=== PATIENT | female | born 1955 | race Caucasian/White ===

== ENCOUNTER 2018-09-03 11:03 | Observation (INO) ==
--- NOTE | 2018-09-03 11:48 | Emergency Department Note ---
Disposition Clinical Impression: TIA (transient ischemic attack) Disposition: Admitted As Inpatient Condition: Fair Referrals: NONE,PCP [Primary Care Provider] - Forms: ED Satisfaction Letter Time of Disposition: 13:59 General Adult HPI - General Chief complaint: ED Arrhythmia/Palpitations Stated complaint: Numbness right arm, Hypertension, Time Seen by Provider: 09/03/18 11:19 Source: patient Limitations: no limitations Nursing Notes Reviewed: Yes Vital Signs Reviewed: Yes - History of Present Illness HPI Narrative: Presents with right arm numbness which was present at home this morning when she woke up at 6:00 and went back to sleep and woke up again at 10:00 and at that time felt disoriented and she did not know where she was and because her had a stroke she was concerned maybe she was having a stroke so recited the alphabet but was able to do this successfully. She does not feel confused at this time anymore. She did have some numbness of both shoulders and mid back which is resolved now. No chest pain. No head pain. No weakness of extremities. No slurred speech, facial droop, confusion at this time. Social history: No smoking or alcohol. She is diabetic. She is here with her daughter Pain Scale: 6 - Related Data Home Medications Medication Instructions Recorded Confirmed Albuterol Sulfate [Ventolin Hfa] 2 puff IH Q4HR PRN 09/03/18 09/03/18 Aspirin [Adult Aspirin] 81 mg PO DAILY 09/03/18 09/03/18 Fluticasone Propionate [Flovent 2 puff IH DAILY 09/03/18 09/03/18 Hfa] Insulin Glargine,Hum.rec.anlog 18 unit SQ DAILY 09/03/18 09/03/18 [Basaglar Leobardopen U-100] Linagliptin [Tradjenta] 5 mg PO DAILY 09/03/18 09/03/18 Lisinopril [Zestril] 5 mg PO DAILY 09/03/18 09/03/18 Lovastatin [Mevacor] 20 mg PO DAILY 09/03/18 09/03/18 Metoprolol Tartrate 50 mg PO BID 09/03/18 09/03/18 Montelukast [Singulair] 10 mg PO DAILY 09/03/18 09/03/18 Pioglitazone [Actos] 15 mg PO DAILY 09/03/18 09/03/18 Previous Rx's Medication Instructions Recorded hydroCHLOROthiazide 25 mg PO DAILY #30 tablet 11/27/16 [Hydrochlorothiazide] Allergies Allergy/AdvReac Type Severity Reaction Status Date / Time No Known Allergies Allergy Verified 11/27/16 09:58 Review of Systems: Constitutional: No fever Vision: No blurred vision ENT: No rhinorrhea Respiratory: No cough Allergic: No allergies : No blood in urine GI: No blood in stool Hematologic: No bruising Dermatologic: No skin rash Musculoskeletal: No pain in the extremities Neuro: + numbness of the extremities right arm Past Medical History - Past Medical History Medical history: Reports: diabetes, fibromyalgia, hypertension Surgical history: Reports: appendectomy, cholecystectomy, hysterectomy Psychiatric history: Reports: no psych history - Social History Smoking Status: Never smoker Smokeless Tobacco Status: No Alcohol use: Reports: none Drug use: Reports: none Physical Exam CONSTITUTIONAL: Alert and oriented X3, well-nourished, well appearing, in no apparent distress HEAD: Normocephalic; atraumatic. EYES: PERRL, no scleral icterus. NOSE: The nose is normal in appearance without rhinorrhea RESP: Normal chest excursion with respiration; breath sounds clear and equal bi laterally; no wheezes, rhonchi, or rales CARD: Regular rhythm, without murmurs, rub or gallop ABD: Non-distended; non-tender, soft,without rigidity, rebound or guarding SKIN: Normal for age and race; warm and dry; no apparent lesions Neuro: Stroke scale is 0. She is conversing normally. Alert and oriented 3 and does easily and readily know the month and her age - General Limitations: no limitations General appearance: alert Course Vital Signs Temperature 97.9 F 09/03/18 11:10 Pulse Rate 82 09/03/18 11:10 Respiratory Rate 09/03/18 11:10 Blood Pressure 169/84 09/03/18 11:10 O2 Sat by Pulse Oximetry 100 09/03/18 11:10 Temperature 97.9 F 09/03/18 11:10 Pulse Rate 78 09/03/18 13:22 Respiratory Rate 20 09/03/18 11:10 Blood Pressure 160/85 09/03/18 13:22 O2 Sat by Pulse Oximetry 100 09/03/18 13:22 Oxygen Delivery Oxygen Delivery Room Air Medical Decision Making - MDM Narrative Medical decision making narrative: Symptoms concerning for TIA. Symptoms resolved this time. I did review the patient's EKG showing normal sinus rhythm with rate of 80 and without acute ischemic change or evidence of arrhythmia. She will be admitted to the hospital after testing is done here including head CT and labs. Results pending. 1148 I did speak with Dr. Castaneda who accepts the patient for admission for further evaluation of TIA. The patient is not a thrombolytic candidate due to prolonged duration of symptoms with last known normal being last night 1359 - Medical Records Medical records reviewed: Yes I reviewed the patient's medical records. - Lab Data Lab results reviewed: Yes I reviewed the patient's lab results. Result diagrams: 09/03/18 11:21 09/03/18 11:21 Lab Results 09/03/18 09/03/18 Range/Units 11:21 11:21 WBC 10.2 (4.3-11.1) K/mcL RBC 4.83 (3.82-4.97) M/mcL Hgb 13.0 (11.5-15.4) g/dL Hct 40.0 (35.3-44.9) % MCV 82.8 L (83.0-100.0) fL MCH 26.9 L (28.0-33.3) pg MCHC 32.5 (31.6-35.5) g/dL RDW 14.5 (11.5-14.5) % Plt Count 240 (140-400) K/mcL MPV 9.0 L (9.4-12.4) fL Sodium 135 L (136-145) mEq/L Potassium 4.2 (3.5-5.1) mEq/L Chloride 100 (98-107) mEq/L Carbon Dioxide 27 (23-29) mEq/L BUN 21 (8-23) mg/dL Creatinine 0.78 (0.60-1.20) mg/dL Est GFR ( Amer) > 60 (> 60) Est GFR (Non-Af Amer) > 60 (> 60) BUN/Creatinine Ratio 27 H (6-26) Glucose 203 H (70-105) mg/dL Calculated Osmolality 289 (280-300) Calcium 9.7 (8.6-10.3) mg/dL Troponin I < 0.03 (< 0.04) ng/mL - Radiology Data Radiology results reviewed: Yes I reviewed the patient's radiology results. NIH Stroke Scale - Level of Consciousness LOC: Alert - LOC Questions LOC Questions: Answers both correctly - LOC Commands LOC Commands: Performs both correctly - Best Gaze Best Gaze: Normal - Visual Visual: No visual loss - Facial Palsy Facial Palsy: Normal - Motor Arms Motor Arm-Left: No drift for 10 seconds Motor Arm-Right: No drift for 10 seconds - Motor Legs Motor Leg-Left: No drift for 5 seconds Motor Leg-Right: No drift for 5 seconds - Limb Ataxia Limb Ataxia: Normal, No Ataxia - Sensory Sensory: Normal - Best Language Best Language: No aphasia - Dysarthria Dysarthria: Normal - Extinction and Inattention Extinction and Inattention: Normal - NIHSS Total Score NIHSS Total Score: 0
[2018-09-03 12:05] LABS: Mean Corpuscular HGB Conc 32.5 g/dL (31.6-35.5); Mean Corpuscular Hemoglobin 26.9 pg (28.0-33.3); Mean Corpuscular Volume 82.8 fL (83.0-100.0); Platelet Count 240 K/mcL (140-400); Red Blood Count 4.83 M/mcL (3.82-4.97); Red Cell Distribution Width 14.5 % (11.5-14.5); White Blood Count 10.2 K/mcL (4.3-11.1)
[2018-09-03 12:21] LABS: BUN/Creatinine Ratio 27 (6-26); Blood Urea Nitrogen 21 mg/dL (8-23); Calcium 9.7 mg/dL (8.6-10.3); Carbon Dioxide 27 mEq/L (23-29); Chloride 100 mEq/L (98-107); Glucose 203 mg/dL (70-105); Osmolality,Calculated 289 (280-300); Potassium 4.2 mEq/L (3.5-5.1); Sodium 135 mEq/L (136-145); Troponin I < 0.03 ng/mL (< 0.04); eGFR For African Americans > 60 (> 60); eGFR For Non-African Americans > 60 (> 60)
[2018-09-03] MEDS ORDERED: Naloxone 0.4 MG/ML INJ IVP PRN (14:37)
[2018-09-03] MEDS ORDERED: traMADol 50 MG TABLET PO PRN (14:37)
[2018-09-03] MEDS ORDERED: Dextrose Gel 15 GM/37.5 ML TUBE PO PRN ×2 (14:40)
[2018-09-03] MEDS ORDERED: D5% in Water 1,000 ML IVC PRN (14:40)
[2018-09-03] MEDS ORDERED: *HR* Dextrose 50 % in Water (Syg) 50 ML SYRINGE IVP PRN (14:40)
--- NOTE | 2018-09-03 15:07 | Internal Med History&Physical ---
Date of Encounter: 09/03/18 Time of Encounter: 15:02 Internal Medicine - H&P: HPI Chief complaint: right sided weakness and numbness Admitted From: Home Plans for Post Hospital Care: Home History of present illness: Ms. Crabtree is a 63 year old female PMH of DM, HTN, and HLD. Patient presented to the hospital due to right sided numbness and weakness. Patient reports today at around 6am she woke up and she felt disoriented and her right arm was feeling numb and heavier. reported she checked her blood sugar and it was around 160, and her BP was not elevated. Reports going back to sleep and waking up around 10am and again he right arm was numb, and weaker and decided to come to the ED. denies slurred speech, reports nausea and one episode of non- bilious, non-bloody vomiting as well as temporal headache. Denies urinary symptoms, fever, or abdominal pain, but reports chills. patient reports going through a lot of stress at work. Past Med Surg Social Fam HX - Past Medical History Medical history: diabetes, fibromyalgia, hypertension Psychiatric history: no psych history - Past Surgical History Surgical History: appendectomy, cholecystectomy, hysterectomy - Social History Smoking Status: Never smoker Smokeless Tobacco Status: No Alcohol use: none Drug use: none Internal Medicine - H&P: Meds hydroCHLOROthiazide [Hydrochlorothiazide] 25 mg PO DAILY #30 tablet 11/27/16 [Rx] Albuterol Sulfate [Ventolin Hfa] 2 puff IH Q4HR PRN 09/03/18 [History] Aspirin [Adult Aspirin] 81 mg PO DAILY 09/03/18 [History] Fluticasone Propionate [Flovent Hfa] 2 puff IH DAILY 09/03/18 [History] Insulin Glargine,Hum.rec.anlog [Basaglar Kwikpen U-100] 18 unit SQ DAILY 09/03/18 [History] Linagliptin [Tradjenta] 5 mg PO DAILY 09/03/18 [History] Lisinopril [Zestril] 5 mg PO DAILY 09/03/18 [History] Lovastatin [Mevacor] 20 mg PO DAILY 09/03/18 [History] Metoprolol Tartrate 50 mg PO BID 09/03/18 [History] Montelukast [Singulair] 10 mg PO DAILY 09/03/18 [History] Pioglitazone [Actos] 15 mg PO DAILY 09/03/18 [History] Allergy/AdvReac Type Severity Reaction Status Date / Time No Known Allergies Allergy Verified 11/27/16 09:58 All Systems PM: A 10-system review of systems was performed and is negative for pertinent findings except as documented above in the HPI. - Constitutional Constitutional: chills, weakness, no fever(s), no malaise - EENT Nose, mouth and throat: no sinus pain - Cardiovascular Cardiovascular ROS IM: no chest pain, no dyspnea, no dyspnea on exertion, no lightheadedness, no palpitations, no paroxysmal nocturnal dyspnea - Respiratory Respiratory: no cough, no wheezing, no excessive phlegm production - Gastrointestinal Gastrointestinal: nausea, vomiting, no abdominal pain, no diarrhea, no dyspepsia - Musculoskeletal Musculoskeletal ROS IM: no atrophy - Integumentary Integumentary IM: no erythema, no non-healing lesions - Neurological Neurological ROS: confusion, focal weakness, headache(s), numbness, weakness, no lack of coordination - Psychiatric Psychiatric: no anxiety, no hallucinations, no hopelessness - Endocrine Endocrine IM: no cold intolerance, no excessive sweating - Hematologic/Lymphatic Hematologic/Lymphatic: no lymphadenopathy - Allergic/Immunologic Allergic/Immunologic: no GI upset with certain foods - Constitutional Vitals: Temp Pulse Resp BP Pulse Ox 97.9 F 78 20 156/79 100 09/03/18 11:10 09/03/18 13:22 09/03/18 14:48 09/03/18 14:48 09/03/18 13:22 Exam: General: Patient is Alert and oriented x4. No acute distress, speaks in full sentences Head: atraumatic, normocephalic, Eye: normal appearance, PERRL, no scleral icterus, no conjunctival injection ENT: mucous membranes moist, normal external ear exam Respiratory: Good respiratory effort. CTA b/l, no wheezing, rales or crackles. Cardiovascular: RRR,normal s1 and s2, no clicks, rubs, gallops, or murmors. Abdomen: Bowel sounds present normoactive x-4 quadrants. Abdomen is soft, nondistended. No guarding or rebound. Obese musculoskeletal: Spontaneously moving all extremities. no edema, no calf te nderness Skin: warm, dry, intact. Neuro: Sensation light touch intact. Cranial nerves 2-12 is intact. Not aphasic, rapid hand movements intact, [id number] intact, Psych: Patient's affect is normal Internal Med - H&P Results - Labs CBC & Chem 7: 09/03/18 11:21 09/03/18 11:21 Labs: Short CBC 09/03/18 Range/Units 11:21 WBC 10.2 (4.3-11.1) K/mcL Hgb 13.0 (11.5-15.4) g/dL Hct 40.0 (35.3-44.9) % Plt Count 240 (140-400) K/mcL BMP 09/03/18 11:21 Sodium 135 L Potassium 4.2 Chloride 100 Carbon Dioxide 27 BUN 21 Creatinine 0.78 Glucose 203 H Calcium 9.7 Cardiac Enzymes 09/03/18 Range/Units 11:21 Troponin I < 0.03 (< 0.04) ng/mL - Impressions ITS Impressions Chest X-Ray 09/03/18 11:43 IMPRESSION: No acute cardiopulmonary abnormality. D/ / Mark Brody MD / Mark Brody MD Interpreting Provider: Mark Brody MD Head CT 09/03/18 11:43 IMPRESSION: No acute intracranial abnormality. D/ / Enid Maradiaga MD / Enid Maradiaga MD Interpreting Provider: Enid Maradiaga MD - Diagnostic Studies Chest x-ray Status: image reviewed by me (no acute findings) - Assessment and Plan (1) Stroke-like symptoms Current Visit: Yes Status: Acute Assessment and plan: possible TIA, patient's symptoms have resolved. will r/o acute cva patient with multiple risks factors Plan MRI of the brain TTE Aspirin 81mg/PO daily Lipid panel A1C PT/OT (2) Diabetes Current Visit: Yes Status: Chronic Assessment and plan: Hyperglycemia. Patient started on short and long-acting insulin coverage. Carbs controlled diet Qualifiers: Diabetes mellitus type: type 2 Diabetes mellitus emt intermediate insulin use: unspecified emt intermediate insulin use status Diabetes mellitus complication status: without complication Qualified Code(s): E11.9 - Type 2 diabetes mellitus without complications (3) HTN (hypertension) Current Visit: Yes Status: Chronic Assessment and plan: Resume patient's home medication. Lisinopril 5 mg by mouth daily, and metoprolol 50 mg by mouth twice a day. Qualifiers: Hypertension type: unspecified Qualified Code(s): I10 - Essential (primary) hypertension (4) HLD (hyperlipidemia) Current Visit: Yes Status: Chronic Assessment and plan: Patient is on lovastatin 20 mg by mouth at bedtime. Qualifiers: Hyperlipidemia type: unspecified Qualified Code(s): E78.5 - Hyperlipidemia, unspecified (5) DVT prophylaxis Current Visit: Yes Status: Acute Assessment and plan: Heparin subcutaneous. - Time Spent With Patient Total time spent is greater than 50% in coordination of care (as documented) at patient's floor/unit and/or counseling patient: Greater than 35 minutes (40)
[2018-09-03 16:19] LABS: Prothrombin Time 11.6 Seconds (9.4-12.1)
[2018-09-03 16:22] LABS: Activated Partial Thrombo Time 29.1 Seconds (26.0-36.0)
[2018-09-03 16:47] LABS: Estimated Average Glucose 180 mg/dl
[2018-09-03] MEDS: Aspirin Enteric Coated 81 MG Tablet PO SCH (17:19)
[2018-09-03] MEDS: Insulin LISPRO 300 UNITS/3 ML VIAL SQ SCH (17:19)
[2018-09-03] MEDS: Ondansetron 4 MG/2 ML VIAL IVP PRN (17:28)
[2018-09-03] MEDS ORDERED: Insulin DETEMIR 100 UNIT/ML X5UNITS SQ SCH (21:00)
[2018-09-03] MEDS: *HR* Heparin 5,000 UNIT/ML VIAL SQ SCH (21:31)
--- NOTE | 2018-09-03 23:14 | Event Note ---
Date of Encounter: 09/03/18 Time of Encounter: 23:09 Notified by nurse of patient's MRI brain results showing acute microinfarcts within the high left frontoparietal lobe. Assessed patient at bedside, symptoms remain resolved at this time. Called on-call neurology Dr. Veronica to consult on patient and for any new recommendations. Requested patient be started on 75 mg Plavix daily now and will see in a.m.
[2018-09-04 00:34] LABS: Bilirubin,Urine Negative (Negative); Blood,Urine Negative (Negative); Clarity,Urine Clear (Clear); Glucose,Urine (UA) Normal (Normal); Ketones,Urine Negative (Negative); Leukocyte Esterase,Urine Negative (Negative); Nitrite,Urine Negative (Negative); Protein,Urine Negative (Neg-Trace); Specific Gravity,Urine 1.019 (1.010-1.025); Urobilinogen,Urine Normal (Normal)
[2018-09-04 00:35] LABS: Color,Urine Yellow (Yellow)
[2018-09-04 01:50] LABS: Basophils # 0.1 K/mcL (0.0-0.2); Basophils % 0.6 %; Eosinophils # 0.2 K/mcL (0.0-0.6); Eosinophils % 1.3 %; Hematocrit 38.7 % (35.3-44.9); Hemoglobin 12.4 g/dL (11.5-15.4); Immature Granulocytes % 0.4 % (0-4); Lymphocytes # 2.4 K/mcL (0.6-4.6); Lymphocytes % 20.2 %; Mean Corpuscular Hemoglobin 26.1 pg (28.0-33.3); Mean Corpuscular Volume 81.5 fL (83.0-100.0); Mean Platelet Volume 9.3 fL (9.4-12.4); Monocytes # 0.8 K/mcL (0.0-1.3); Neutrophils # 8.4 K/mcL (1.6-8.9); Platelet Count 233 K/mcL (140-400); Red Blood Count 4.75 M/mcL (3.82-4.97); Red Cell Distribution Width 14.3 % (11.5-14.5); Segmented Neutrophils % 70.5 %; White Blood Count 11.9 K/mcL (4.3-11.1)
[2018-09-04 02:09] LABS: BUN/Creatinine Ratio 23 (6-26); Blood Urea Nitrogen 18 mg/dL (8-23); Calcium 9.4 mg/dL (8.6-10.3); Carbon Dioxide 26 mEq/L (23-29); Chloride 99 mEq/L (98-107); Glucose 133 mg/dL (70-105); Magnesium 1.7 mg/dL (1.6-2.6); Osmolality,Calculated 284 (280-300); Potassium 3.8 mEq/L (3.5-5.1); Sodium 135 mEq/L (136-145); eGFR For African Americans > 60 (> 60); eGFR For Non-African Americans > 60 (> 60)
--- NOTE | 2018-09-04 05:36 | Electrocardiograph Report ---
[place] [facility] Test Date: 2018-09-03 Pat Name: Gena Crabtree Department: [id number] Room: 3B14 Gender: F Etl Architect: : [id number] Requested By: Juan Manuel Swift Order Number: [id number] Reading MD: Stevie Fang Measurements Intervals [place] Rate: 80 P: 32 KS: 160 QRS: 58 QRSD: 91 T: 59 QT: 407 QTc: 470 Interpretive Statements Sinus rhythm Electronically Signed On 09-04-2018 5:35:22 EDT by Stevie Fang
[2018-09-04] MEDS: *HR* Heparin 5,000 UNIT/ML VIAL SQ SCH ×2 (06:25→13:20)
[2018-09-04] MEDS ORDERED: Isovue-370 500 ML BOTTLE IVP ONE (07:45)
[2018-09-04 08:30] VITALS: BP 134/82
[2018-09-04] MEDS: Insulin LISPRO 300 UNITS/3 ML VIAL SQ SCH ×2 (08:31→13:20)
[2018-09-04] MEDS: Aspirin Enteric Coated 81 MG Tablet PO SCH (08:31)
[2018-09-04] MEDS: Ondansetron 4 MG/2 ML VIAL IVP PRN (08:34)
--- NOTE | 2018-09-04 08:58 | Discharge Summary ---
Orders not resulted at time of discharge: Pending orders 09/03/18 23:11 EV carotid duplex imaging BI Routine 09/04/18 07:45 CT angio head [CT] Routine CTA Neck [CT angio neck] [CT] Routine Date of Encounter: 09/04/18 Time of Encounter: 08:55 - Discharge Diagnosis (1) CVA (cerebral vascular accident) Priority: Primary Status: Acute Assessment and Plan: Acute micro infarcts within the high left frontoparietal lobe. 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 Crabtree is a 63 year old female PMH of DM, HTN, and HLD. Patient presented to the hospital due to right sided numbness and weakness. Patient admitted to the hospital for CVA workup. R/MR head/brain wo con IMPRESSION: Acute micro infarcts within the high left frontoparietal lobe. Neurology consulted. Patient is started on Plavix. Head and neck CTA: and TTE? PT/OT evaluated the patient, and patient had no needs. She is hemodynamically stable to be discharged home. Recommended to follow-up with neurology as an outpatient within 1-2 weeks of hospital discharge. - Time Spent with Patient Total time spent providing and/or coordinating discharge services: Time spent: Greater than 30 minutes (35) - Discharge Medications Prescriptions: New Clopidogrel [Plavix] 75 mg PO HS 30 Days #30 tablet Continued hydroCHLOROthiazide [Hydrochlorothiazide] 25 mg PO DAILY #30 tablet Fluticasone Propionate [Flovent Hfa] 2 puff IH DAILY Albuterol Sulfate [Ventolin Hfa] 2 puff IH Q4HR PRN PRN Reason: Wheezing Aspirin [Adult Aspirin] 81 mg PO DAILY Lovastatin [Mevacor] 20 mg PO DAILY Linagliptin [Tradjenta] 5 mg PO DAILY Metoprolol Tartrate 50 mg PO BID Montelukast [Singulair] 10 mg PO DAILY Lisinopril [Zestril] 5 mg PO DAILY Pioglitazone [Actos] 15 mg PO DAILY Insulin Glargine,Hum.rec.anlog [Basaglar Kwikpen U-100] 18 unit SQ DAILY Home Medications: hydroCHLOROthiazide [Hydrochlorothiazide] 25 mg PO DAILY #30 tablet 11/27/16 [Rx] Albuterol Sulfate [Ventolin Hfa] 2 puff IH Q4HR PRN 09/03/18 [History] Aspirin [Adult Aspirin] 81 mg PO DAILY 09/03/18 [History] Fluticasone Propionate [Flovent Hfa] 2 puff IH DAILY 09/03/18 [History] Insulin Glargine,Hum.rec.anlog [Basaglar Kwikpen U-100] 18 unit SQ DAILY 09/03/18 [History] Linagliptin [Tradjenta] 5 mg PO DAILY 09/03/18 [History] Lisinopril [Zestril] 5 mg PO DAILY 09/03/18 [History] Lovastatin [Mevacor] 20 mg PO DAILY 09/03/18 [History] Metoprolol Tartrate 50 mg PO BID 09/03/18 [History] Montelukast [Singulair] 10 mg PO DAILY 09/03/18 [History] Pioglitazone [Actos] 15 mg PO DAILY 09/03/18 [History] Clopidogrel [Plavix] 75 mg PO HS 30 Days #30 tablet 09/04/18 [Rx] Allergies/Adverse Reactions: Allergy/AdvReac Type Severity Reaction Status Date / Time No Known Allergies Allergy Verified 11/27/16 09:58 Date of admission: 09/03/18 14:23 Primary care physician: PCP NONE Consults: 09/03/18 14:39 Consult to Occupational Therapy [CONS] Routine Comment: Evaluate, develop and implement POC Reason for Consult: admitted for stroke like symptoms Does patient have active BEDREST order?: No Is patient medically & hemodynamically stable?: Yes Consult to Physical Therapy [CONS] Routine Comment: Evaluate, develop and implement POC Reason for Consult: admitted for stroke like symptoms Does patient have active BEDREST order?: No Is patient medically & hemodynamically stable?: Yes 09/03/18 23:13 Consult to Neurology [CONS] Routine Consulting Provider: Neurology [facility] Reason for Consult: Patient presented with right-sided weakness and numbness that is currently resolved. MRI brain showed acute microinfarcts within the high left frontoparietal lobe. Discussed with Dr. Veronica who will see in a.m. Call Completed: Yes - Constitutional Vitals: Temp Pulse Resp BP Pulse Ox 98.0 F 84 16 134/82 96 09/04/18 08:29 09/04/18 08:29 09/04/18 08:29 09/04/18 08:29 09/04/18 08:29 Exam: Vitals: Reviewed General: Alert and oriented x4. No acute distress Respiratory: CTA b/l, no wheezing, rales or crackles. Cardiovascular: RRR, normal s1 and s2, no clicks, rubs, gallops, or murmors. Abdomen: Obese, Bowel sounds present normoactive x-4 quadrants. Abdomen is soft, nondistended. No guarding or rebound. Musculoskeletal: Spontaneously moving all extremities. no edema, no calf tenderness Skin: warm, dry, intact. Neuro: Cranial nerves 2-12 is intact. Not aphasic, rapid hand movements intact, [id number] intact Psych: Patient's affect is normal - Patient Status Disposition: Home, Self-Care Condition: Good Functional capacity at discharge: independent ambulation Overall status at discharge: patient is progressing back to baseline - Discharge Instructions Follow Up With: NONE,PCP [Primary Care Provider] - - Diet and Activity Activity: resume usual activities as tolerated Diet: diabetic diet, low salt diet
--- NOTE | 2018-09-04 14:33 | Neurology - Consult Note ---
Date of Encounter: 09/04/18 Time of Encounter: 11:30 Assessment and Plan (1) Acute lacunar infarction Current Visit: Yes Status: Acute This patient was admitted earlier with the right side his symptoms that seems to have improved during the workup she was found to have acute infarct in the right frontal lobe. Without any embolic source on echocardiogram Carotid duplex is been negative but she did have some proximal internal carotid artery atherosclerotic disease Currently patient is a stable do not think she would require any acute rehabilitation Has no significant motor focal deficit on examination Recommend strongly better blood pressure control as well as blood sugar monitoring She is been started on Plavix suggest to continue 75 mg daily She may discontinue aspirin after 2 days of overlap Continue monitor her blood pressure follow-up with her primary care for risk factor modification Follow-up in neurology clinic in about a month Other treatment is as per primary team From neurology standpoint patient is stable and could be discharged to home History of Present Illness HPI: Ms. Crabtree is a 63 year old female with PMH of DM, HTN, admitted via ER to the hospital due to right sided numbness and weakness. Patient reports today at around 6am she woke up and she felt disoriented and her right arm was feeling numb and heavier. reported she checked her blood sugar and it was around 160, and her BP was not elevated. Reports going back to sleep and waking up around 10am and again he right arm was numb, and weaker and decided to come to the ED. denies slurred speech, reports nausea and one episode of non- bilious, non-bloody vomiting as well as temporal headache. Denies urinary symptoms, fever, or abdominal pain, but reports chills. patient reports going through a lot of stress at work. Now she seemed to be back to her baseline she did have an MRI of the brain that was positive for acute small lacunar infarct in the left frontal lobe I weakness and paresthesias has improved now Past Med Surg Social Fam HX - Past Medical History Medical history: diabetes, fibromyalgia, hypertension Psychiatric history: no psych history - Past Surgical History Surgical History: appendectomy, cholecystectomy, hysterectomy - Social History Smoking Status: Never smoker Smokeless Tobacco Status: No Alcohol use: none Drug use: none - Family History Mother Living Status: Age at : 63 Cause of : accident Hx Family Cardiac Disorders: Yes Hx Family Respiratory Disorders: No Hx Family Cancer: No Hx Family Endocrine Disorder: Yes (DM) Father Living Status: Age at : 79 Hx Family Cardiac Disorders: Yes Hx Family Endocrine Disorder: Yes (DM) Medications and Allergies hydroCHLOROthiazide [Hydrochlorothiazide] 25 mg PO DAILY #30 tablet 11/27/16 [Rx] Albuterol Sulfate [Ventolin Hfa] 2 puff IH Q4HR PRN 09/03/18 [History] Aspirin [Adult Aspirin] 81 mg PO DAILY 09/03/18 [History] Fluticasone Propionate [Flovent Hfa] 2 puff IH DAILY 09/03/18 [History] Insulin Glargine,Hum.rec.anlog [Basaglar Kwikpen U-100] 18 unit SQ DAILY 09/03/18 [History] Linagliptin [Tradjenta] 5 mg PO DAILY 09/03/18 [History] Lisinopril [Zestril] 5 mg PO DAILY 09/03/18 [History] Lovastatin [Mevacor] 20 mg PO DAILY 09/03/18 [History] Metoprolol Tartrate 50 mg PO BID 09/03/18 [History] Montelukast [Singulair] 10 mg PO DAILY 09/03/18 [History] Pioglitazone [Actos] 15 mg PO DAILY 09/03/18 [History] Clopidogrel [Plavix] 75 mg PO HS 30 Days #30 tablet 09/04/18 [Rx] Allergy/AdvReac Type Severity Reaction Status Date / Time No Known Allergies Allergy Verified 11/27/16 09:58 All Systems: The remainder of the systems were reviewed and are negative Physical Examination - Vital Signs Vital Signs: Initial Vital Signs Temp Pulse Resp BP Pulse Ox 97.9 F 82 20 169/84 100 09/03/18 11:10 09/03/18 11:10 09/03/18 11:10 09/03/18 11:10 09/03/18 11:10 - Exam Exam: GENERAL: Comfortable in no acute distress HEENT: Normal LUNGS: CTA HEART: RRR, S1 S2 Audible, no murmur EXTREMITIES: No Pedal edema. DETAILED NEUROLOGICAL EXAMINATION: MENTAL STATUS: Oriented to person, place, date and situation. Memory: knows the President, Aware of recent events Recent Memory Intact, Attention span is normal Cranial Nerve Examination: CN - II: Visual Acuity, Field of Vision Normal, Fundus examination: No disk edema, Pupils- size shape reaction to light and accommodation: All normal. CN III, IV, : External ocular movements were intact, Pupils were reactive, Nodrooping of the eyelids CN V: Sensation over the face to light touch and pinprick all normal. Corneal reflexes not tested, jaw jerk normal. CN VII: No facial asymmetry, no flattening of nasolabial folds, no difficulty in closing the eyes, no loss of forehead wrinkles, no difficulty in eye-closure, frowning raising eyebrows. CNVIII: No significant hearing loss CN IX, X: Uvula centralized not deviated, Gag reflex: Not tested CN X1: Sternocleidomastoid, trapezius, normal or evidence of any weakness. CN X11: No Dysarthria, no wasting or fibrilation f tongue muscles, no deviation, tongue muscle strength normal. Motor examination: No hypertrophy, tone was normal, power grade 0-5 Upper limbs Proximal- No difficulty in lifting the arms above the head. Distal- No weakness in distal muscles On formal testing 5/5 all over Lower limbs On formal testing 5/5 all over Coordination: Xynjls-po-dyln normal. Target pursuit normal finger tapping normal, Rapid alternating moment of wrist normal Sensory system: Superficial sensations- Touch normal. Pain- Pinprick, Temperature all normal, Deep sensation normal, Joint position sense normal. Cortical sensation, Tactile discrimination, localization and extinction all normal. Deep tendon reflexes. Symmetrical bilateral, No evidence of Babinski. No sign of meningeal irritation Gait Examination: Deferred - Constitutional General appearance: comfortable Results - Laboratory Findings CBC and BMP: 09/04/18 01:37 09/04/18 01:37 Abnormal lab findings: Abnormal lab results WBC 11.9 K/mcL (4.3-11.1) H 09/04/18 01:37 MCV 81.5 fL (83.0-100.0) L 09/04/18 01:37 MCH 26.1 pg (28.0-33.3) L 09/04/18 01:37 MPV 9.3 fL (9.4-12.4) L 09/04/18 01:37 Sodium 135 mEq/L (136-145) L 09/04/18 01:37 27 (6-26) H 09/03/18 11:21 Glucose 133 mg/dL (70-105) H 09/04/18 01:37 POC Glucose 165 mg/dL (70-99) H 09/03/18 21:22 7.9 % (-5.6) H 09/03/18 15:17 Phosphorus 5.0 mg/dL (2.7-4.5) H 09/04/18 01:37 Triglycerides 363 mg/dL (< 150) H 09/03/18 15:17 Cholesterol 380 mg/dL (< 200) H 09/03/18 15:17 LDL Cholesterol, Calc 269 mg/dL (0-99) H 09/03/18 15:17 VLDL Cholesterol, Calc 73 mg/dL (< 31) H 09/03/18 15:17 38 mg/dL (40-59) L 09/03/18 15:17 10.0 (0-4.9) H 09/03/18 15:17 - Diagnostic Findings Additional findings: MRI of the brain showed Acute micro infarcts within the high left frontoparietal lobe. CT angiogram of the head and neck shows\ Atherosclerotic calcification of the supraclinoid left internal carotid artery without flow-limiting stenosis. There is moderate stenosis of the proximal right middle cerebral artery. no flow-limiting stenosis of the intracranial vertebral arteries. PICA origins are visualized. No flow-limiting stenosis of the basilar artery or bilateral posterior cerebral arteries. Mild, less than 50%, stenosis of the internal carotid arteries . Consult Discharge Plan - Plan Instructions: Ischemic Stroke (DC) Referrals: Janes Nelson MD [Non-Partnered Physician] - (Please call and follow up with your primary care physician in 5-7 days. ) Adin Veronica MD [Partnered Physician] - (We have requested an appointment with [facility]. The office will call you at home with an appointment date and time. ) Prescriptions: Clopidogrel [Plavix] 75 mg PO HS 30 Days #30 tablet
== END 2018-09-04 14:20 | disposition home or self-care (01) ==
LOC: EMEROOARM 11:03 → 3BNU 11:03 → SUATTDRO 14:23 → 3BNU 15:08
PROVIDERS: ADMIT Internal Medicine Nephrology; ATTEND Internal Medicine